=== PATIENT | female | born 1990 | race Hispanic/Latino ===

== ENCOUNTER 2019-02-28 17:09 | Emergency (ER) | payer MEDICAID | END 2019-02-28 18:15 | disposition home or self-care (01) | LOC: EDH 17:09 | DX: S93.401A Sprain of unspecified ligament of right ankle, initial encounter (principal); Z72.0 Tobacco use; W18.39XA Other fall on same level, initial encounter; Y93.61 Activity, american tackle football; Y92.321 Football field as the place of occurrence of the external cause; Y99.8 Other external cause status | CPT/HCPCS: 73610 ==